=== PATIENT | male | born 1980 | race Caucasian/White ===

== ENCOUNTER 2021-05-14 23:59 | Emergency (ER) | payer OTHER ==
[~2021-05-14] VITALS: Ht 185.4 cm; Wt 117.9 kg
[2021-05-15] MEDS ORDERED: Cleocin HCl150 MG PO (01:07)
== END 2021-05-15 01:33 | disposition home or self-care (01) ==
LOC: ER 23:59
DX: K04.7 Periapical abscess without sinus (principal); Z88.0 Allergy status to penicillin
CPT/HCPCS: 96372; 99282-25; A9270; J1885

== ENCOUNTER 2021-06-10 23:20 | Emergency (ER) | payer OTHER ==
[~2021-06-10] VITALS: Ht 185.4 cm; Wt 117.9 kg
[~2021-06-10 23:20] MED LIST: Cleocin HCl150 MG PO
[2021-06-11] MEDS ORDERED: CYCL10 PO (00:36)
== END 2021-06-11 00:55 | disposition home or self-care (01) ==
LOC: ER 23:20
DX: S46.912A Strain of unspecified muscle, fascia and tendon at shoulder and upper arm level, left arm, initial encounter (principal); S16.1XXA Strain of muscle, fascia and tendon at neck level, initial encounter; S20.212A Contusion of left front wall of thorax, initial encounter; Z88.0 Allergy status to penicillin; X58.XXXA Exposure to other specified factors, initial encounter
CPT/HCPCS: 71046; 73030; 96372; 99284-25; A9270; J1885

== ENCOUNTER 2021-07-16 19:27 | Emergency (ER) | payer OTHER ==
[~2021-07-16] VITALS: Ht 185.4 cm; Wt 117.9 kg
[~2021-07-16 19:27] MED LIST changes: +CYCL10 PO
[2021-07-16] MEDS ORDERED: Percocet 5-3251 EACH PO (20:30)
[2021-07-16] MEDS ORDERED: KETO10 PO (20:30)
== END 2021-07-16 20:38 | disposition home or self-care (01) ==
LOC: ER 19:27
DX: R07.81 Pleurodynia (principal); V00.121A Fall from non-in-line roller-skates, initial encounter; Y93.51 Activity, roller skating (inline) and skateboarding; Z88.0 Allergy status to penicillin
CPT/HCPCS: 71101; A9270